=== PATIENT | male | born 1985 | race Caucasian/White ===

== ENCOUNTER → 2016-07-16 | Outpatient (CLI) | payer OTHER ==
--- NOTE | ~2016-07-16 | MR31 ---
[facility] A Service of [facility] RADIOLOGY TEXT RESULTS PATIENT: TUAN MORILLO LOCATION: [facility] : 81 UNIT #: [id number] AGE: [address]: Geovanny Gore II, MD SEX: M ORDER DR: [id number] [facility]. [place], [place] [address] [id number] MR#: [id number] #: [id number] NAME: TUAN MORILLO : 1985 SEX: M STUDY DATE/TIME: 07/16/2016 17:44 UNIT: [facility] ROOM: STUDY DESCRIPTION: MR Cervical WWo Contrast Attending Physician: Geovanny Gore II., M.D. Referring Physician: Geovanny Gore II., M.D. Ordering Physician: Geovanny Gore II., M.D. [facility] Phys[facility] This report is preliminary unless electronic signature is present. EXAM MRI of the cervical spine with without HISTORY Pain upper C-spine base of skull. Known Chiari malformation. History of a previous skateboard accident. Feel fuzzy for about a year now. COMMENT MRI of the cervical spine WAS performed prior to and following intravenous administration of 15 mL of MultiHance. There is a comparison study from 10/11/2015. There is mild reversal of upper cervical lordosis. Bone marrow signal intensity is normal. The intervertebral discs are desiccated. 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 There is about 8 mm of tonsillar ectopia and the tonsils are pointed. This patient has a relatively small posterior fossa and there is also some downward displacement of cervicomedullary junction with kinking of the posterior aspect cervicomedullary junction at the level of the odontoid process. This appearance is relatively unchanged. Following contrast administration there is no pathologic enhancement. No syrinx cavity is seen. This lesion could however certainly be associated with the patient's headache described in the history. At C2-3, no significant abnormality. C3-4, minor posterior disc bulge. No canal or foraminal compromise. At C4-5, mild posterior disc bulge. Minimal endplate spondylosis. Mild effacement of the anterior thecal sac. No central canal stenosis. Mild bilateral foraminal narrowing and probably some small uncovertebral osteophyte formation. [facility] A Service of [facility] RADIOLOGY TEXT RESULTS PATIENT: TUAN MORILLO [facility] UN[facility] #: [id number] AGE: [address]: Geovanny Gore II, MD SEX: M ORDER DR: At C5-6, mild bilateral facet degenerative change. There is a broad posterior disc protrusion/extrusion more prominent right [id number] location. Mild effacement of the anterior thecal sac but no central canal stenosis. Mild right greater than left side foraminal narrowing. C6-7, left paramedian disc extrusion remains contiguous to the disc extends slightly cephalad from the disc with mild left-sided cord flattening and canal stenosis. Mild bilateral facet degenerative change mild left foraminal narrowing. At C7-T1, minor posterior disc bulge. No canal or foraminal compromise. On comparison to the previous study, the degenerative disc disease has progressed, particularly at the 6-7 level. IMPRESSION 1. Redemonstration of a Chiari 1.5 malformation. This could certainly be associated with the patient's headaches described in the history. Please correlate further clinically. There is no evidence for syrinx and there is nothing to suggest pathologic cord enhancement. 2. Interval progression of cervical degenerative disc disease most apparent at C6-7 where there is now mild left-sided cord flattening and canal stenosis. See [id number] discussion above. Dictated by... Brook Orellana M.D. THIS IS AN ELECTRONICALLY VERIFIED REPORT Brook Orellana M.D. at 07/18/2016 6:12 PM RENEE/kristal TD: 07/18/2016 12:55 JOB #: [id number] [facility] REPORT Page 1 of 1 COPY
== END | disposition home or self-care (01) ==
LOC: CMRI 16:35
DX: G93.5 Compression of brain (principal); M50.81 Other cervical disc disorders, high cervical region; M50.222 Other cervical disc displacement at C5-C6 level; M99.81 Other biomechanical lesions of cervical region; M47.812 Spondylosis without myelopathy or radiculopathy, cervical region
CPT/HCPCS: 72156; A9577

== ENCOUNTER → 2016-07-23 | Outpatient (CLI) | payer OTHER | END | disposition home or self-care (01) | LOC: CECH 09:12 | DX: Z01.818 Encounter for other preprocedural examination (principal) | CPT/HCPCS: 93660 ==